=== PATIENT | male | born 1990 | race American Indian/Alaskan Native ===

== ENCOUNTER 2022-05-23 16:33 | Emergency (ER) | payer SELFPAY ==
[2022-05-23] MEDS ORDERED: MORPHINE 4 MG/1 ML INJ IM STA (17:04)
--- NOTE | 2022-05-23 17:24 | Emergency Department Report ---
ED General Adult HPI - General Chief complaint: Extremity Injury, Upper Stated complaint: LEFT ARM PAIN Time Seen by Provider: 05/23/22 17:09 Source: patient, RN notes reviewed Mode of arrival: Ambulatory Limitations: Physical Limitation - History of Present Illness Initial comments: The patient was evaluated in the emergency department for symptoms described in the history of present illness. He/she was evaluated in the context of the global COVID-19 pandemic, which necessitated consideration that the patient might be at risk for infection with the virus that causes COVID-19. Institutional protocols and algorithms that pertain to the evaluation of patients at risk for COVID-19 are in a state of rapid change based on information released by regulatory bodies including the CDC and federal and state organizations. These policies and algorithms were followed during the patient's care in the emergency department. Please note that these policies, procedures and recommendations changed on a rapid basis. This is a 31-year-old gentleman who reports that he is ambidextrous, who presents to the ER today with a complaint of acute left proximal arm pain, after fall. Believes that he fell out of a balcony. He thinks the balcony was around 8 to 9 feet tall. Reports that he fell initially onto his left scapula, and then rolled onto his left shoulder. He did not hit his head or neck directly. He only complains of isolated proximal left-sided shoulder/arm pain. Pain is sharp and throbbing. It increases with palpation and range of motion. Decreases with rest and position. He denies additional injuries and complaints. He felt much improved after intramuscular morphine here in the emergency room. -: Sudden Location: left, upper extremity Severity scale (0 -10): 10 Quality: aching Consistency: constant Improves with: medication, rest Worsens with: movement Associated Symptoms: denies other symptoms - Related Data Previous Rx's Medication Instructions Recorded Last Taken Type Acetaminophen [Non-Aspirin Extra 500 mg PO Q6HR PRN #30 tablet 05/23/22 Unknown Rx Strength] Ibuprofen [Motrin] 600 mg PO Q8H PRN #30 tablet 05/23/22 Unknown Rx Morphine Sulfate [Morphine Sulfate 7.5 mg PO Q6HR PRN #15 tablet 05/23/22 Unknown Rx IR] Ondansetron [Zofran Odt] 4 mg PO Q8HR PRN #20 tab.rapdis 05/23/22 Unknown Rx Allergies Allergy/AdvReac Type Severity Reaction Status Date / Time No Known Allergies Allergy Verified 05/23/22 16:39 ED Review of Systems ROS: Stated complaint: LEFT ARM PAIN Other details as noted in HPI Comment: All other systems reviewed and negative Musculoskeletal: joint swelling, arthralgia, myalgia Neurological: denies: numbness, paresthesias Psychiatric: anxiety ED Past Medical Hx - Medications Home Medications: Home Medications Medication Instructions Recorded Confirmed Last Taken Type Acetaminophen [Non-Aspirin Extra 500 mg PO Q6HR PRN #30 tablet 05/23/22 Unknown Rx Strength] Ibuprofen [Motrin] 600 mg PO Q8H PRN #30 tablet 05/23/22 Unknown Rx Morphine Sulfate [Morphine Sulfate 7.5 mg PO Q6HR PRN #15 tablet 05/23/22 Unknown Rx IR] Ondansetron [Zofran Odt] 4 mg PO Q8HR PRN #20 tab.rapdis 05/23/22 Unknown Rx ED Physical Exam - General Limitations: Physical Limitation General appearance: alert, anxious, in distress - Head Head exam: Present: atraumatic, normocephalic - Eye Eye exam: Present: normal appearance, EOMI. Absent: nystagmus - ENT ENT exam: Present: normal exam, normal orophraynx, mucous membranes moist, normal external ear exam - Neck Neck exam: Present: normal inspection, full ROM. Absent: tenderness, meningismus - Respiratory Respiratory exam: Present: normal lung sounds bilaterally. Absent: respiratory distress, wheezes, rales, rhonchi, stridor, decreased breath sounds - Cardiovascular Cardiovascular Exam: Present: regular rate, normal rhythm, normal heart sounds. Absent: bradycardia, tachycardia, irregular rhythm, systolic murmur, diastolic murmur, rubs, gallop - GI/Abdominal GI/Abdominal exam: Present: soft. Absent: distended, tenderness, guarding, rebound, rigid, pulsatile mass - Rectal Rectal exam: Present: deferred - Extremities Exam Extremities exam: Present: full ROM (Right upper extremity. Bilateral lower extremities), tenderness (Left proximal humerus), normal capillary refill, other (Right upper extremity is nontender. Bilateral extremities nontender. The pel vis is stable. The muscular compartments are soft. 2+ pulses noted in the bilateral upper and lower extremities). Absent: normal inspection, pedal edema, calf tenderness - Back Exam Back exam: Present: normal inspection. Absent: tenderness, CVA tenderness (R), CVA tenderness (L), paraspinal tenderness, vertebral tenderness - Neurological Exam Neurological exam: Present: alert, oriented X3, normal gait, other (No facial droop. Tongue midline. Extraocular movements intact bilaterally. Facial sensation intact to light touch in V1, V2, V3 distribution bilaterally. 5 and a 5 strength in 4 extremities. Sensation intact to light touch in 4 extremities.). Absent: motor sensory deficit - Psychiatric Psychiatric exam: Present: anxious - Skin Skin exam: Present: warm, dry, intact, normal color. Absent: rash ED Course Vital Signs 05/23/22 16:37 Temperature 97.4 F L Pulse Rate 101 H Respiratory 20 Rate Blood Pressure 117/80 [Right] O2 Sat by Pulse 100 Oximetry - Reevaluation(s) Reevaluation #1: 05/23/22 17:34 Differential diagnosis, including but not limited to: Sprain, strain, fracture, dislocation Assessment and plan: 31-year-old gentleman, who is ambidextrous, presenting with fall outs of of a balcony, initially landing onto his scapula, and then rolling onto his left shoulder. He did not hit his head. He did not hit his neck. He is clinically sober with a GCS of 15. He is examinable and not distracted. Patient is clinically sober at this time. The cervical spine is cleared through nexus and congolese c spine rule His exam is remarkable for isolated point tenderness to left proximal humerus. Distally, there is no elbow, forearm, wrist or hand tenderness. Sensation is intact to light touch in the deltoid, median, radial, ulnar distribution. Thumb opposition, range of motion intact, lumbricals are intact. He felt improved after intramuscular morphine. Discussed natural history of proximal humerus fracture. to be Placed patient in sling. Appropriate pain medications have been ordered Patient understands to follow-up with outpatient orthopedics. Return precautions are reviewed. All questions answered. On final reassessment, on cell phone, earbuds in place, does not appear to be in significant distress 05/23/22 18:38 Patient feels much improved after application of left arm sling. He is currently on cell phone. He is in no acute distress. All questions were answered. Return precautions are reviewed. To follow-up with outpatient orthopedics. Dr Blayne Kern of orthopedic service is also in agreement with the plan of care for discharge, we discussed his case, patient to follow-up with orthopedics within the next week. This is likely nonoperative ED Medical Decision Making - Lab Data Vital Signs 05/23/22 16:37 Temperature 97.4 F L Pulse Rate 101 H Respiratory 20 Rate Blood Pressure 117/80 [Right] O2 Sat by Pulse 100 Oximetry - Radiology Data Radiology results: pending, report reviewed, image reviewed . LEFT SHOULDER 2 VIEW(S) INDICATION / CLINICAL INFORMATION: fall. COMPARISON: None available. FINDINGS: BONES / JOINT(S): Acute utyi-fs-amsqwkhx displaced left proximal surgical neck humerus fracture. No significant arthritis. SOFT TISSUES: No significant abnormality. ADDITIONAL FINDINGS: None. IMPRESSION: 1. Acute orbx-tm-dotzcauv displaced left proximal surgical neck humerus fracture Signer Name: Luther Lopez MD Signed: 05/23/2022 4:59 PM Workstation Name: [id number] LEFT HUMERUS 2 VIEW(S) INDICATION / CLINICAL INFORMATION: fall COMPARISON: None available. FINDINGS: BONES / JOINT(S): Acute moderately displaced fracture involving proximal left surgical neck. No significant arthritis. SOFT TISSUES: No significant abnormality. ADDITIONAL FINDINGS: None. IMPRESSION: 1. Acute moderately displaced left proximal surgical neck humerus fracture Signer Name: Luther Lopez MD Signed: 05/23/2022 4:58 PM Workstation Name: [employer] Critical care attestation.: If time is entered above; I have spent that time in minutes in the direct care of this critically ill patient, excluding procedure time. ED Disposition Clinical Impression: Closed left humeral fracture Qualifiers: Encounter type: initial encounter Humerus Location: proximal Disposition: 01 HOME / SELF CARE / HOMELESS Is pt being admited?: No Does the pt Need Aspirin: No Condition: Good Instructions: Humerus Fracture Treated With Immobilization, [id number] Additional Instructions: Pain typically gets worse before gets better after mechanical fall. Please keep the left upper extremity in a sling. Do not use the left upper extremity for any heavy lifting, strenuous physical activity. Please take the pain medications as needed and directed. Take the nausea medication if needed for nausea and vomiting. Follow-up with any of the listed orthopedic surgeon within the next 7 to 10 days. Exercise caution when taking the morphine sulfate for pain. This medication can be habit-forming, and sedating. If taking the medication, do not drive, consume alcohol, or make important decisions. Dr. Kern is a local orthopedic surgeon. [facility] is a local orthopedic surgery group. Please return to the emergency room right away with new pain, worsened pain, migration of pain, projectile vomiting, change in mental status, confusion, inability tolerate liquid feeds, new, worsened or different symptoms not present on the initial emergency room evaluation Prescriptions: Morphine Sulfate [Morphine Sulfate IR] 7.5 mg PO Q6HR PRN #15 tablet PRN Reason: Pain , Severe (7-10) Ibuprofen [Motrin] 600 mg PO Q8H PRN #30 tablet PRN Reason: Pain Acetaminophen [Non-Aspirin Extra Strength] 500 mg PO Q6HR PRN #30 tablet PRN Reason: Pain , Severe (7-10) Ondansetron [Zofran Odt] 4 mg PO Q8HR PRN #20 tab.rapdis PRN Reason: Nausea Referrals: [facility] [Provider Group] - 7-10 days KEITH KERN MD [Staff Physician] - 7-10 days BUTCH MARTIN MD [Staff Physician] - 7-10 days Forms: Work/School Release Form(ED)
--- NOTE | 2022-05-23 18:02 | XRay Report ---
LEFT HUMERUS 2 VIEW(S) INDICATION / CLINICAL INFORMATION: fall COMPARISON: None available. FINDINGS: BONES / JOINT(S): Acute moderately displaced fracture involving proximal left surgical neck. No signi ficant arthritis. SOFT TISSUES: No significant abnormality. ADDITIONAL FINDINGS: None. IMPRESSION: 1. Acute moderately displaced left proximal surgical neck humerus fracture Signer Name: Luther Lopez MD Signed: 05/23/2022 5:58 PM Workstation Name: [id number]
--- NOTE | 2022-05-23 18:03 | XRay Report ---
. LEFT SHOULDER 2 VIEW(S) INDICATION / CLINICAL INFORMATION: fall. COMPARISON: None available. FINDINGS: BONES / JOINT(S): Acute rawh-wu-fptdyung displaced left proximal surgical neck humerus fracture. No s ignificant arthritis. SOFT TISSUES: No significant abnormality. ADDITIONAL FINDINGS: None. IMPRESSION: 1. Acute asfn-se-yaptvbkt displaced left proximal surgical neck humerus fracture Signer Name: Luther Lopez MD Signed: 05/23/2022 5:59 PM Workstation Name: [email or web address]
[2022-05-23] MEDS ORDERED: KETOROLAC 30 MG/1 ML INJ IM STA (18:42)
[2022-05-23 19:51] VITALS: BP 130/76
== END 2022-05-23 19:50 | disposition home or self-care (01) ==
LOC: ED 16:33
DX: S42.302A Unspecified fracture of shaft of humerus, left arm, initial encounter for closed fracture (principal); W19.XXXA Unspecified fall, initial encounter; Y93.89 Activity, other specified; Y92.89 Other specified places as the place of occurrence of the external cause; Y99.8 Other external cause status
CPT/HCPCS: 73030; 73060; 96372; 99283; J1885; J2270